=== PATIENT | male | born 1990 | race Caucasian/White ===

== ENCOUNTER 2022-07-06 12:57 | Outpatient (CLI) | payer OTHER, SELFPAY ==
--- NOTE | 2022-07-06 13:44 | MR_ITS ---
WS: [id number] MRI LUMBAR SPINE NONCONTRAST HISTORY: LOW BACK PAIN, back surgery June 2021. COMPARISON: None available. TECHNIQUE: Sagittal and axial multisequence imaging is submitted. 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 No high-grade stenosis. There are a few levels o f disc bulging in the thoracic spine. Mild straightening of the normal lumbar lordosis. Posterior lumbar fusion with interbody spacer at L4 -5. The remaining disc spaces are well preserved. Conus terminates normally at L1-2 disc level. L1-L2: Normal. L2-L3: Mild disc bulging with ligamentum flavum and facet arthritis. No high-grade stenosis. L3-L4: Mild annular disc bulging. Facet and ligamentum flavum arthropathy encroach towards the thecal sac, greatest on the LEFT. Mild bilateral foraminal stenosis. L4-L5: Large posterior laminectomy defect. Mild annular disc bulging. Nerve roots are distributed wit hin the central thecal sac. Mild bilateral foraminal stenosis. Slightly greater stenosis on the RIGHT . L5-S1: Mild annular disc bulging, slightly greater to the RIGHT. Mild encroachment upon the ventral t hecal sac. Mild bilateral foraminal stenosis, RIGHT greater than LEFT. There is very mild disc contac t on the undersurface of the RIGHT L5 nerve root. MR/MR lumbar spine wo con* [id number] IMPRESSION: 1. Status post posterior lumbar fusion at L4-5 interbody spacer. 2. Mild bilateral foraminal stenosis from L3-4 to L5-S1. Stenosis due to disc disease and osteophytosis. Mild encroachment upon the exiting RIGHT L3, L4 and L5 nerve roots. No high-grade stenosis. Similar findings within the LEFT lamina at the same levels but to a lesser degree.
== END 2022-07-06 12:58 | disposition home or self-care (01) ==
LOC: RAD 13:00
PROVIDERS: Visit Provider Nurse Practitioner Family
DX: Z98.1 Arthrodesis status; Z98.890 Other specified postprocedural states; M48.061 Spinal stenosis, lumbar region without neurogenic claudication; M48.07 Spinal stenosis, lumbosacral region
CPT/HCPCS: 72148